=== PATIENT | male | born 1965 | race American Indian/Alaskan Native ===

== ENCOUNTER 2019-11-05 22:00 | Emergency (ER) | payer SELFPAY ==
[2019-11-05 23:58] LABS: Basophils # (Auto) 0.1 K/mm3 (0.0-0.1); Basophils % (Auto) 1.2 % (0.0-1.8); Eosinophils # (Auto) 0.2 K/mm3 (0.0-0.4); Eosinophils % (Auto) 3.1 % (0.0-4.3); Hematocrit 36.2 % (35.5-45.6); Hemoglobin 11.9 gm/dl (11.8-15.2); Lymphocytes # (Auto) 2.1 K/mm3 (1.2-5.4); Mean Corpuscular HGB Conc 33 % (32-34); Mean Corpuscular Volume 78 fl (84-94); Monocytes # (Auto) 0.7 K/mm3 (0.0-0.8); Platelet Count 265 K/mm3 (140-440); Red Blood Count 4.63 M/mm3 (3.65-5.03); Red Cell Distribution Width 15.5 % (13.2-15.2)
[2019-11-06 00:17] LABS: BUN/Creatinine Ratio 12; Blood Urea Nitrogen 14 mg/dL (9-20); Calcium 9.7 mg/dL (8.4-10.2); Hemolysis Index 7
[2019-11-06 00:45] LABS: Bilirubin,Urine NEG (Negative); Blood,Urine LG (Negative); Color,Urine Yellow (Yellow); Mucus,Urine 3+ /HPF; Urobilinogen,Urine < 2.0 mg/dL (<2.0)
[2019-11-06 00:56] LABS: Protein,Urine >500 mg/dL (Negative); RBC,Urine > 182.0 /HPF (0.0-6.0); WBC,Urine > 182.0 /HPF (0.0-6.0)
[2019-11-06] MEDS ORDERED: cephALEXin 500 MG CAP PO ONE (01:27)
[2019-11-06] MEDS ORDERED: PHENAZOPYRIDINE 200 MG TAB PO ONE (01:29)
[2019-11-06] MEDS ORDERED: amLODIPine 5 MG TAB PO ONE (01:34)
--- NOTE | 2019-11-06 01:34 | Emergency Department Report ---
ED Male HPI - General Chief complaint: High BP Stated complaint: BLOOD IN URINE,PAINFUL URINATION Time Seen by Provider: 11/06/19 01:23 Source: patient Mode of arrival: Stretcher Limitations: No Limitations - History of Present Illness Initial comments: CC: I have blood in my urine. HPI: This is a 54 yo male with hx of HTN who presents with hematuria, dysuria for 5 days. Mild symptoms. He has been treated for similar infection on previous occasion. He has not taken blood pressure medications for 5 months. He denies headache, blurry vision, or chest pain. MD Complaint: dysuria, other (hematuria) Location: penis Severity: mild Quality: burning Consistency: intermittent Worsens with: urination denies other symptoms - Related Data Previous Rx's Medication Instructions Recorded Last Taken Type amLODIPine 10 mg PO DAILY #30 tab 11/06/19 Unknown Rx cephALEXin [Keflex] 500 mg PO Q8HR 10 Days #30 cap 11/06/19 Unknown Rx hydroCHLOROthiazide [HCTZ] 25 mg PO QDAY #30 tablet 11/06/19 Unknown Rx Allergies Allergy/AdvReac Type Severity Reaction Status Date / Time No Known Allergies Allergy Unverified 11/05/19 23:33 ED Review of Systems ROS: Stated complaint: BLOOD IN URINE,PAINFUL URINATION Other details as noted in HPI Comment: All other systems reviewed and negative Constitutional: denies: fever, malaise Cardiovascular: denies: chest pain Gastrointestinal: denies: abdominal pain, nausea, vomiting Genitourinary: dysuria, hematuria ED Past Medical Hx - Past Medical History Previous Medical History?: Yes Hx Hypertension: Yes - Social History Smoking Status: Current Every Day Smoker Substance Use Type: Marijuana - Medications Home Medications: Home Medications Medication Instructions Recorded Confirmed Last Taken Type amLODIPine 10 mg PO DAILY #30 tab 11/06/19 Unknown Rx cephALEXin [Keflex] 500 mg PO Q8HR 10 Days #30 cap 11/06/19 Unknown Rx hydroCHLOROthiazide [HCTZ] 25 mg PO QDAY #30 tablet 11/06/19 Unknown Rx ED Physical Exam - General Limitations: No Limitations General appearance: alert, in no apparent distress - Head Head exam: Present: atraumatic, normocephalic - Eye Eye exam: Present: normal appearance - ENT ENT exam: Present: mucous membranes moist - Neck Neck exam: Present: normal inspection, full ROM - Respiratory Respiratory exam: Present: normal lung sounds bilaterally. Absent: respiratory distress, wheezes, rales, rhonchi - Cardiovascular Cardiovascular Exam: Present: regular rate, normal rhythm, normal heart sounds. Absent: systolic murmur, diastolic murmur, rubs, gallop - GI/Abdominal GI/Abdominal exam: Present: soft, normal bowel sounds. Absent: distended, tenderness, guarding, rebound - Rectal Rectal exam: Present: deferred - Extremities Exam Extremities exam: Present: normal inspection - Neurological Exam Neurological exam: Present: alert, oriented X3 - Psychiatric Psychiatric exam: Present: normal affect, normal mood - Skin Skin exam: Present: warm, dry, intact, normal color. Absent: rash ED Course Vital Signs 11/05/19 23:25 Temperature 98.3 F Pulse Rate 81 Respiratory 18 Rate Blood Pressure 216/141 O2 Sat by Pulse 98 Oximetry ED Medical Decision Making - Lab Data Result diagrams: 11/05/19 23:44 11/05/19 23:44 Laboratory Results - last 24 hr 11/05/19 11/05/19 11/05/19 23:44 23:44 Unknown WBC 6.9 RBC 4.63 Hgb 11.9 Hct 36.2 MCV 78 L MCH 26 L MCHC 33 RDW 15.5 H Plt Count 265 Lymph % (Auto) 30.0 [place] % (Auto) 10.0 H Eos % (Auto) 3.1 Baso % (Auto) 1.2 Lymph # (Auto) 2.1 [place] # (Auto) 0.7 Eos # (Auto) 0.2 Baso # (Auto) 0.1 Seg Neutrophils % 55.7 Seg Neutrophils # 3.9 Sodium 139 Potassium 3.6 Chloride 99.4 Carbon Dioxide 28 Anion Gap 15 BUN 14 Creatinine 1.2 Estimated GFR > 60 BUN/Creatinine Ratio 12 Glucose 94 Calcium 9.7 Urine Color Yellow Urine Turbidity Slightly-cloudy Urine pH 6.0 Ur Specific [place] 1.017 Urine Protein >500 Urine Glucose (UA) Neg Urine Ketones Neg Urine Blood Lg Urine Nitrite Neg Urine Bilirubin Neg Urine Urobilinogen < 2.0 Ur Leukocyte Esterase Mod Urine WBC (Auto) > 182.0 H Urine RBC (Auto) > 182.0 U Epithel Cells (Auto) < 1.0 Urine Mucus 3+ Urine Yeast (Budding) 2+ - Medical Decision Making 1. UTI: cephalexin prescribed 2. Hypertensive urgency without endorgan damage, amlodipine and HCTZ prescribed Patient given referral to outpatient medicine physician. Critical care attestation.: If time is entered above; I have spent that time in minutes in the direct care of this critically ill patient, excluding procedure time. ED Disposition Clinical Impression: UTI (urinary tract infection), Hypertensive urgency Disposition: TO HOME OR SELFCARE Is pt being admited?: No Does the pt Need Aspirin: No Condition: Stable Instructions: Hypertension (ED), Urinary Tract Infection in Men (ED) Prescriptions: amLODIPine 10 mg PO DAILY #30 tab hydroCHLOROthiazide [HCTZ] 25 mg PO QDAY #30 tablet cephALEXin [Keflex] 500 mg PO Q8HR 10 Days #30 cap Referrals: KODI LEWIS MD [Staff Physician] - 3-5 Days
[2019-11-06 03:49] VITALS: BP 180/90
== END 2019-11-06 03:00 | disposition home or self-care (01) ==
LOC: ED 22:00
DX: N39.0 Urinary tract infection, site not specified (principal); I16.0 Hypertensive urgency
CPT/HCPCS: 36415; 80048; 81001; 85025

== ENCOUNTER 2021-06-04 16:19 | Emergency (ER) | payer SELFPAY ==
[2021-06-04 19:56] VITALS: BP 239/132
[2021-06-04] MEDS ORDERED: amLODIPine 5 MG TAB PO ONE (20:40)
--- NOTE | 2021-06-04 20:44 | Emergency Department Report ---
ED General Adult HPI - General Chief complaint: Pain General Stated complaint: I pooped on myself Time Seen by Provider: 06/04/21 20:34 Source: patient, RN notes reviewed, old records reviewed Mode of arrival: Ambulatory Limitations: No Limitations - History of Present Illness Initial comments: This patient is a pleasant and cooperative 56-year-old gentleman, who presents to the ER today with a chief complaint of accidentally defecating on himself. He denies headache, neck pain, chest pain, abdominal pain, shortness of breath, and denies all symptoms. The patient is found to have incidentally chronic hypertension. The patient was found to have high blood pressure while here in 2019. He had laboratory studies at that time which were unremarkable. He indicates that he smokes cigarettes and is interested in stopping smoking. He is not compliant with his antihypertensive medications -: Sudden Severity scale (0 -10): 0 Consistency: now resolved Improves with: none Worsens with: none - Related Data Previous Rx's Medication Instructions Recorded Last Taken Type cephALEXin [Keflex] 500 mg PO Q8HR 10 Days #30 cap 11/06/19 Unknown Rx hydroCHLOROthiazide [HCTZ] 25 mg PO QDAY #30 tablet 11/06/19 Unknown Rx Nicotine Polacrilex [Nicotine Gum] 4 mg BC PRN #1 pack 06/04/21 Unknown Rx amLODIPine 10 mg PO DAILY #30 tab 06/04/21 Unknown Rx Allergies Allergy/AdvReac Type Severity Reaction Status Date / Time No Known Allergies Allergy Verified 06/04/21 18:47 ED Review of Systems ROS: Stated complaint: POSS STROKE Other details as noted in HPI Comment: All other systems reviewed and negative Gastrointestinal: as per HPI (Accidentally defecated on himself) ED Past Medical Hx - Past Medical History Previous Medical History?: Yes Hx Hypertension: Yes - Social History Smoking Status: Current Every Day Smoker Substance Use Type: Marijuana - Medications Home Medications: Home Medications Medication Instructions Recorded Confirmed Last Taken Type cephALEXin [Keflex] 500 mg PO Q8HR 10 Days #30 cap 11/06/19 Unknown Rx hydroCHLOROthiazide [HCTZ] 25 mg PO QDAY #30 tablet 11/06/19 Unknown Rx Nicotine Polacrilex [Nicotine Gum] 4 mg BC PRN #1 pack 06/04/21 Unknown Rx amLODIPine 10 mg PO DAILY #30 tab 06/04/21 Unknown Rx ED Physical Exam - General Limitations: No Limitations General appearance: alert, in no apparent distress - Head Head exam: Present: atraumatic, normocephalic - Eye Eye exam: Present: normal appearance, EOMI, other (Visual acuity intact to finger counting, color perception, reading at a close distance). Absent: nystagmus - ENT ENT exam: Present: normal exam, normal orophraynx, mucous membranes moist, normal external ear exam - Neck Neck exam: Present: normal inspection, full ROM. Absent: tenderness, meningismus - Respiratory Respiratory exam: Present: normal lung sounds bilaterally. Absent: respiratory distress, wheezes, rales, rhonchi, stridor, decreased breath sounds - Cardiovascular Cardiovascular Exam: Present: regular rate, normal rhythm, normal heart sounds. Absent: bradycardia, tachycardia, irregular rhythm, systolic murmur, diastolic murmur, rubs, gallop - GI/Abdominal GI/Abdominal exam: Present: soft. Absent: distended, tenderness, guarding, rebound, rigid, pulsatile mass - Rectal Rectal exam: Present: deferred - Extremities Exam Extremities exam: Present: normal inspection, full ROM, other (2+ pulses noted in the bilateral upper and lower extremities. There is no palpable cord. negative Homans sign. Muscular compartments are soft. The pelvis is stable.). Absent: pedal edema, calf tenderness - Back Exam Back exam: Present: normal inspection, full ROM. Absent: tenderness, CVA tenderness (R), CVA tenderness (L), paraspinal tenderness, vertebral tenderness - Neurological Exam Neurological exam: Present: alert, oriented X3, normal gait, reflexes normal, other (No facial droop. Tongue midline. Extraocular movements intact bilater ally. Facial sensation intact to light touch in V1, V2, V3 distribution bilaterally. 5 and a 5 strength in 4 extremities. Sensation intact to light touch in 4 extremities.). Absent: motor sensory deficit - Psychiatric Psychiatric exam: Present: normal affect, normal mood - Skin Skin exam: Present: warm, dry, intact, normal color. Absent: rash ED Course Vital Signs 06/04/21 06/04/21 06/04/21 18:43 19:55 20:43 Temperature 98.2 F 98.2 F Pulse Rate 73 70 Respiratory 16 16 Rate Blood Pressure 216/126 Blood Pressure 239/132 [Left] O2 Sat by Pulse 99 99 Oximetry O2 Sat by Pulse 99 Oximetry [ Digit-Finger] - Reevaluation(s) Reevaluation #1: 06/04/21 20:44 Differential diagnosis, including but not limited to: Hypertension, encounter for tobacco cessation, medication refill Assessment and plan: 56-year-old gentleman, who is afebrile, with reassuring vital signs with exception of chronic hypertension, most recent blood pressure 210/115 mmHg, awake, alert, oriented, sober, GCS 15, ambulatory with a steady gait, of sound mind, and exhibits decision-making capacity. Advised to discontinue tobacco consumption. Advised to remain compliant with antihypertensive therapy. Discharged with Norvasc refill, and nicotine gum. Will need to follow-up with an outpatient primary care doctor. Return precautions reviewed. Ambulatory with a steady gait - Pulse Oximetry Interpretation Digit-Finger Initial Pulse Oximetry Readin O2 Sat by Pulse Oximetry: 99 Actions Taken: none ED Medical Decision Making - Lab Data Vital Signs 06/04/21 06/04/21 18:43 19:55 Temperature 98.2 F 98.2 F Pulse Rate 73 70 Respiratory 16 16 Rate Blood Pressure 216/126 Blood Pressure 239/132 [Left] O2 Sat by Pulse 99 99 Oximetry - EKG Data -: EKG Interpreted by Me EKG shows normal: sinus rhythm Rate: normal - EKG Data 06/04/21 20:43 The EKG is interpreted at 20: 04 Sinus rhythm, 71 bpm. Normal axis, QTC 4 4 4 ms, high left ventricular voltage, and motion artifact. Abnormal EKG. Not a STEMI. Critical care attestation.: If time is entered above; I have spent that time in minutes in the direct care of this critically ill patient, excluding procedure time. ED Disposition Clinical Impression: Elevated blood pressure reading, Encounter for tobacco use cessation counseling Disposition: 01 HOME / SELF CARE / HOMELESS Is pt being admited?: No Does the pt Need Aspirin: No Condition: Good Instructions: Preventing Hypertension, Steps to Quit Smoking Additional Instructions: Recommend that the patient discontinue tobacco consumption. Recommend that the patient diet appropriately, exercise and lose weight. Please take the Norvasc as prescribed. Please follow-up with a primary care doctor within the next month. Patient is found to have high blood pressure while here in the emergency room. Long-term complications of tobacco use, and high blood pressure include stroke, heart attack, disability, paralysis, loss of quality of life. Please return to the emergency room right away with new pain, worsened pain, migration of pain, projectile vomiting, change in mental status, confusion, inability tolerate liquid feeds, new, worsened or different symptoms not present on the initial emergency room evaluation Referrals: [facility] [Provider Group] - 3-5 Days [facility] [Provider Group] - 3-5 Days [facility] [Outside] - 3-5 Days
--- NOTE | 2021-06-05 18:02 | Electrocardiograph Report ---
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
== END 2021-06-04 21:28 | disposition home or self-care (01) ==
LOC: ED 16:19
DX: R03.0 Elevated blood-pressure reading, without diagnosis of hypertension (principal); I10 Essential (primary) hypertension; F17.200 Nicotine dependence, unspecified, uncomplicated; F12.90 Cannabis use, unspecified, uncomplicated; Z79.899 Other long term (current) drug therapy
CPT/HCPCS: 93005; 99282

== ENCOUNTER 2021-08-28 02:32 | Emergency (ER) | payer SELFPAY ==
[2021-08-28] MEDS ORDERED: cloNIDine 0.2 MG TAB PO ONE (03:29)
[2021-08-28 04:54] LABS: Hemoglobin 10.7 gm/dl (11.8-15.2); Mean Corpuscular HGB Conc 32 % (32-34); Mean Corpuscular Volume 77 fl (84-94); Platelet Count 230 K/mm3 (140-440); Red Blood Count 4.27 M/mm3 (3.65-5.03); Red Cell Distribution Width 15.5 % (13.2-15.2)
[2021-08-28 05:03] LABS: INR 1.04 (0.87-1.13)
[2021-08-28 05:04] LABS: Partial Thromboplastin Time 35.4 Sec. (24.2-36.6)
[2021-08-28 05:07] LABS: Creatine Kinase MB 3.6 ng/mL (0.0-4.0)
[2021-08-28 05:08] LABS: Alanine Aminotransferase 9 units/L (7-56); Albumin 3.9 g/dL (3.9-5); BUN/Creatinine Ratio 18; Blood Urea Nitrogen 25 mg/dL (9-20); Calcium 9.5 mg/dL (8.4-10.2); Hemolysis Index 7
[2021-08-28] MEDS ORDERED: LACTATED RINGERS 1,000 ML IV ONE (05:13)
--- NOTE | 2021-08-28 05:15 | Emergency Department Report ---
ED General Adult HPI - General Chief complaint: Urogenital-Male Stated complaint: URINATING BLOOD X 1WEEK Time Seen by Provider: 08/28/21 04:15 Source: patient, EMS Mode of arrival: Ambulatory Limitations: No Limitations - Related Data Previous Rx's Medication Instructions Recorded Last Taken Type cephALEXin [Keflex] 500 mg PO Q8HR 10 Days #30 cap 11/06/19 Unknown Rx hydroCHLOROthiazide [HCTZ] 25 mg PO QDAY #30 tablet 11/06/19 Unknown Rx Nicotine Polacrilex [Nicotine Gum] 4 mg BC PRN #1 pack 06/04/21 Unknown Rx amLODIPine 10 mg PO DAILY #30 tab 06/04/21 Unknown Rx Allergies Allergy/AdvReac Type Severity Reaction Status Date / Time No Known Allergies Allergy Verified 06/04/21 18:47 ED Review of Systems ROS: Stated complaint: URINATING BLOOD X 1WEEK Other details as noted in HPI ED Past Medical Hx - Past Medical History Previous Medical History?: Yes Hx Hypertension: Yes - Surgical History Past Surgical History?: No - Social History Smoking Status: Never Smoker Substance Use Type: Marijuana - Medications Home Medications: Home Medications Medication Instructions Recorded Confirmed Last Taken Type cephALEXin [Keflex] 500 mg PO Q8HR 10 Days #30 cap 11/06/19 Unknown Rx hydroCHLOROthiazide [HCTZ] 25 mg PO QDAY #30 tablet 11/06/19 Unknown Rx Nicotine Polacrilex [Nicotine Gum] 4 mg BC PRN #1 pack 06/04/21 Unknown Rx amLODIPine 10 mg PO DAILY #30 tab 06/04/21 Unknown Rx ED Physical Exam - General Limitations: No Limitations ED Course Vital Signs 08/28/21 08/28/21 08/28/21 03:04 03:25 03:33 Temperature 98.4 F Pulse Rate 50 L 109 H 120 H Respiratory 15 18 Rate Blood Pressure 221/140 221/140 O2 Sat by Pulse 100 98 Oximetry 08/28/21 08/28/21 08/28/21 03:55 04:01 04:15 Temperature Pulse Rate 75 72 91 H Respiratory 12 12 13 Rate Blood Pressure 215/126 215/126 O2 Sat by Pulse 98 98 99 Oximetry ED Medical Decision Making - Lab Data Result diagrams: 08/28/21 04:32 08/28/21 04:32 Critical care attestation.: If time is entered above; I have spent that time in minutes in the direct care of this critically ill patient, excluding procedure time. ED Disposition Clinical Impression: Hematuria Disposition: 01 HOME / SELF CARE / HOMELESS Is pt being admited?: No Does the pt Need Aspirin: No Condition: Stable Additional Instructions: Make a follow-up appointment with urologist of your choice or you can go to [facility] and be seen by Dr. Linda Steele MD (address below) to be seen within 3 days for hematuria for further outpatient work-up. [facility] Linda Steele MD [address] [place] [address] [address] [place] [address] Time of Disposition: 06:06
[2021-08-28 06:52] LABS: Amphetamine Screen,Urine Negative; Benzodiazepines Screen,Urine Negative; Cannabinoid Screen,Urine Negative; Cocaine Screen,Urine Negative; Methadone Screen,Urine Negative; Opiate Screen,Urine Negative; RBC,Urine > 182.0 /HPF (0.0-6.0)
[2021-08-28 06:54] LABS: Color,Urine Brown (Yellow)
[2021-08-28 06:55] LABS: Bilirubin,Urine Negative (Negative); Blood,Urine Large (Negative)
[2021-08-28 08:37] VITALS: BP 188/112
== END 2021-08-28 08:37 | disposition home or self-care (01) ==
LOC: ED 02:32
DX: R31.9 Hematuria, unspecified (principal); I10 Essential (primary) hypertension; F12.90 Cannabis use, unspecified, uncomplicated; Z79.899 Other long term (current) drug therapy
CPT/HCPCS: 36415; 80053; 80307; 81001; 82550; 82553; 84484; 85027; 85610; 85730; 87086; 99284